=== PATIENT | female | born 1965 | race Caucasian/White ===

== ENCOUNTER 2016-11-17 16:16 | Emergency (ER) | payer OTHER ==
--- NOTE | 2016-11-17 18:28 | Diag Imaging Result Document ---
PROCEDURE NAME: CHEST-2 VIEWS - 11/17/2016 CHEST, 2 VIEWS: FINDINGS: Compared with 1 view chest of 02/28/2014. Heart size is normal. There is elevation of the anterior right hemidiaphragm which appears to have increased mildly. The lungs appear clear. There is no pleural effusion or pneumothorax identified. IMPRESSION: 1. Elevation of anterior right hemidiaphragm which appears mildly increased compared to 02/28/2014. 2. No other evidence of acute disease.
--- NOTE | 2016-11-17 18:34 | PROVIDER DOCUMENTATION ---
HPI-EENT General - General Chief Complaint: Cold Symptoms Stated Complaint: WHEEZING,EAR PAIN Time Seen by Provider: 11/17/16 18:30 Source: patient Allergies/Adverse Reactions: Patient Allergies Allergy/AdvReac Type Severity Reaction Status Date / Time No Known Allergies Allergy Verified 11/17/16 16:44 Home Medications: Home Medication List Medication Instructions Recorded Confirmed Last Taken Type Hydrocodone/APAP 5 mg/325 mg 1 - 2 tab PO Q6H PRN PRN #18 tablet 02/28/14 Unknown Rx [Devon-5] Lisinopril 40 mg PO DAILY 02/28/14 11/17/16 Unknown History Amoxicillin/Pot Clavulanate 875 mg PO Q12HR #20 tablet 11/17/16 Unknown Rx [Augmentin] Fluoxetine HCl [Prozac] 40 mg PO DAILY 11/17/16 11/17/16 Unknown History Ketorolac [Toradol] 10 mg PO Q6H PRN PRN #6 tablet 11/17/16 Unknown Rx Levothyroxine [Synthroid] 25 mcg PO DAILY 11/17/16 11/17/16 Unknown History Methylprednisolone [Medrol Dosepak] 4 mg PO DIRECTED #1 package 11/17/16 Unknown Rx - History of Present Illness-EENT General Nature of Presenting Problem: Pt c/o left earache with drainage of green/yellow. Wheezing with inspiration. No cough. Denies any nasal drainage. symptoms been going on for 2 weeks. EENT Location: reports: ear (L). denies: eye (R), eye (L), ear (R), nose, mouth , throat, facial, dental, other Quality of Pain: reports: aching, throbbing. denies: none, burning, cramping, dull, fullness, indigestion, pressure, sharp, stabbing, tearing, tightness, other Severity: reports: moderate Onset/Duration: reports: other (2 weeks) Timing: reports: still present, getting worse Prearrival Treatment: Initiated no prearrival treatment, Not Used over the counter meds, Not Used prescription meds, Not Used squeezing nostrils, Not Used nasal packing, Not Used flushing eyes, Not Used other Associated Symptoms: reports: cough, fever, nasal congestion/drainage, sore throat. denies: denies symptoms, change in hearing, drooling, DZ, ear drainage , facial pain/swelling, SARGENT, malaise, MS, RN COMPLIANCE, poor fluid intake, poor solids intake, sinus infection, SW, tooth pain, voice change, other Other injuries?: denies: neck, head, back, other Locality of Occurance: Home Similar Symptoms Previously?: No Recently seen or treated by another doctor?: No - Eyes Eye Problem Symptoms: denies: eye pain, decrease vision, blurred vision, double vision, curtain, other, burning, itching, sensitivity to light, redness, matting , orbital swelling, eyelid swelling, foreign body sensation - Ears Ear Problem Symptoms: reports: earache, discharge. denies: none, hearing loss, ringing in ears, roaring in ears, other Ear Problem Context: reports: none. denies: barotrauma, foreign body, trauma to ear, other - Throat/Dental Throat/Dental Problem Symptoms: reports: none Review of Systems - Adult - REVIEW OF SYSTEMS - ADULT Constitutional: reports: see HPI. denies: no symptoms reported, chills, fever, fatique, night sweats, weight gain, weight loss, other Eyes: reports: no symptoms reported. denies: see HPI, discharge, dry eyes, decreased vision, blurred vision, double vision, eye pain, redness, other Ears, Nose, Mouth & Throat: reports: see HPI, ear discharge, ear pain, sinus problem, throat pain. denies: no symptoms reported, hearing loss, tinnitus, epistaxis, nose pain, loose teeth, mouth/dental pain, mouth swelling, hoarseness , throat swelling, other Cardiovascular: reports: no symptoms reported. denies: see HPI, chest pain, edema, heart murmur, irregular heart rate, orthopnea, palpitations, poor circulation, PND, syncope, other Respiratory: reports: see HPI, cough, wheezing. denies: no symptoms reported, chronic cough, dyspnea on exertion, excessive sputum production, hemoptysis, pleurisy, shortness of breath, other Gastrointestinal: reports: no symptoms reported. denies: see HPI, abdominal pain, hematemesis, constipation, diarrhea, difficulty swallowing, frequent heartburn, nausea, poor appetite, rectal bleeding, vomiting, other Genitourinary: reports: no symptoms reported. denies: see HPI, dysuria, discharge, frequency, flank pain, frequent UTI's, hematuria, hesitency, incontinence, urinary retention, urgency, other Musculoskeletal: reports: no symptoms reported. denies: see HPI, bone pain, back pain, frequent leg cramps, joint pain, joint swelling, muscle aches, muscle weakness, neck pain, other All Other Systems: Reviewed and Negative Past History - Adult - PAST MEDICAL HISTORY-ADULT Review of Records: reports: Old Records Reviewed, Nursing Assessment Review, Medications Reviewed, Social history reviewed & non-contributory. Major Childhood Illnesses: reports: history unknown Cardiovascular: reports: denies history Respiratory: reports: denies history Gastrointestinal: reports: denies history Obstetrical/Gynecological: reports: denies history Genitourinary: reports: denies history Musculoskeletal: reports: arthritis Neurological: reports: denies history Psychiatric: reports: anxiety Endocrine/Immune: reports: denies history Other Conditions: reports: denies history - PRIOR SURGERIES/PROCEDURES Surgical/Procedure History: reports: hysterectomy, other (tubal ligation) - PRIOR HOSPITALIZATIONS Prior Hospitalizations: reports: none - IMMUNIZATION STATUS Childhood Immunizations: See Nurse Assessment Flu Vaccine: See Nurse Assessment - FAMILY HISTORY Family History: reviewed, not pertinent Physical Exam- EENT - Physical Exam EENT Initial Vital Signs Reviewed: Yes General Appearance: appears well, alert, no apparent distress. negative: mild distress, moderate distress, severe distress, cachetic, obese, thin, anxious, lethargic, slow to respond, obtunded, combative, other Eye Exam: bilateral eye: normal inspection, PERRL, EOMI Ear Exam: right ear: auricle normal, canal normal, TM normal, left ear: erythema , tenderness, TM bulging Nasal Exam: normal inspection. negative: active bleeding, discharge, dried blood, foreign body, sinus tenderness, other Throat Exam: normal mouth inspection, pharynx normal. negative: dental tenderness, excessive drooling, foreign body, mandibular swelling, maxillary swelling, pharynx swelling, pharynx tenderness, tongue swollen, tonsillar exudate, tonsillar swelling, trismus, uvula swelling, voice changes, other Neck: non-tender, full range of motion, supple, normal inspection. negative: Brudzinski's sign, carotid bruit, C-spine tenderness, limited range of motion, lymphadenopathy, meningismus, trachial deviation, tender lateral, tender midline , thyromegaly, other Respiratory: chest non-tender, lungs clear, normal breath sounds, no pleuratic chest pain, no respiratory distress, no accessory muscle use. negative: respiratory distress, decreased breath sounds, accessory muscle use, crackles, rales, rhonchi, stridor, wheezing, dull on percussion, prolonged expiration, pain on inspiration, plerual rub, retractions, splinting, decreased rate, increased rate, crepitus, other Cardiovascular: normal peripheral pulses, regular rate, rhythm, no edema, no gallop, no JVD, no murmur. negative: JVD, bradycardia, tachycardia, diastolic murmur, systolic murmur, gallop/S3, gallop/S4, extra beats, friction rub, irregularly irregular, PMI displaced laterally, other Abdominal Exam: normal bowel sounds, non tender, soft, no organomegaly, no pulsatile mass. negative: abdominal bruit, abnormal bowel sounds, distended, guarding, rigid, rebound, tenderness, hernia, mass, hepatomegaly, spleenomegaly , McBurney's point tenderness, Branch's sign, obturator sign, prominent aortic pulsations, psoas, Rovsing's sign, other Lymphatic: no adenopathy. negative: axilla node tender, cervical node tenderness, inguinal node tender, enlargement, striations, streaking, other Back Exam: normal inspection, no CVA tenderness, no vertebral tenderness. negative: CVA tenderness, decreased range of motion, ecchymosis, kyphosis, lordosis, muscle spasm, scoliosis, swelling, vertebral tenderness, other Extremity: normal range of motion, non-tender, normal gait, normal inspection, no pedal edema, no calf tenderness, normal capillary refill. negative: pelvis stable, abnormal NV exam, calf tenderness, deformity, erythema, inflammation, joint effusion, pulse deficit, pedal edema, slow capillary refill, swelling, tenderness, other Integumentary: normal color, normal turgor, warm/dry. negative: abrasion(s), blanching, cyanosis, diaphoresis, decubitus, dependent lividity, ecchymosis, embolic lesions, erythema, signs of IVDA, jaundice, laceration(s), mottled, pallor, petechiae, purpura, rash, swelling, tenderness, warm, zoster-like rash, other Neurologic: grossly normal Psych/Mental Status: oriented x 3 Progress - PLAN OF CARE/RESULTS Progress/Plan/Lab Results: Orders Category Date Time Status CHEST-2 VIEWS [RAD] Stat Exams 11/17/16 16:19 Draft CefTRIAXONE [Rocephin] Med 11/17/16 18:37 Discontinued 1 gm IM NOW ONE Dexamethasone [Decadron] Med 11/17/16 18:38 Discontinued 4 mg IM NOW ONE Lidocaine 1% Pf [Xylocaine-Mpf 1%] Med 11/17/16 18:37 Discontinued 5 ml INJ NOW ONE Vital Signs Temp Pulse Resp BP Pulse Ox 11/17/16 19:35 98.4 F 82 20 124/82 97 11/17/16 17:49 98.5 F 79 18 116/79 97 11/17/16 16:42 97.3 F L 85 20 138/76 97 No Known Allergies Allergy (Verified 11/17/16 16:44) Hydrocodone/APAP 5 mg/325 mg [Devon-5] 1 - 2 tab PO Q6H PRN PRN #18 tablet 02/28 Lisinopril 40 mg PO DAILY 02/28/14 Amoxicillin/Pot Clavulanate [Augmentin] 875 mg PO Q12HR #20 tablet 11/17/16 Fluoxetine HCl [Prozac] 40 mg PO DAILY 11/17/16 Ketorolac [Toradol] 10 mg PO Q6H PRN PRN #6 tablet 11/17/16 Levothyroxine [Synthroid] 25 mcg PO DAILY 11/17/16 Methylprednisolone [Medrol Dosepak] 4 mg PO DIRECTED #1 package 11/17/16 - XRAY 1 XRAY Study: Chest Impression: Normal (Normal other than elevated hemidiaphragm per radiologist.) Departure - Departure Time of Disposition Order: 18:35 DIAGNOSIS: Otitis media Qualifiers: Laterality: left Chronicity: acute Recurrence: not specified as recurrent Spontaneous tympanic membrane rupture: without spontaneous rupture Upper respiratory infection Qualifiers: URI type: unspecified URI Qualified Code(s): J06.9 - Acute upper respiratory infection, unspecified Disposition: HOME 01 Certified Medical Emergency: Emergent Condition: Stable Additional Instructions: ED Follow Up Instructions: You have been treated by a care provider in the Emergency Department. These instructions are being provided to you so you can have an understanding of how to care for yourself upon discharge. Upon discharge from the Emergency Department, you are responsible for making arrangements for follow-up care by a physician of your choice. Take all prescribed medications as directed. Return to the Emergency Department immediately for any new or worsening symptoms. You may call the Physician Referral phone number at [phone] to obtain a list of Physicians who are taking new patients. Prescriptions: Amoxicillin/Pot Clavulanate [Augmentin] 875 mg PO Q12HR #20 tablet Methylprednisolone [Medrol Dosepak] 4 mg PO DIRECTED #1 package Ketorolac [Toradol] 10 mg PO Q6H PRN PRN #6 tablet PRN Reason: Pain Referrals: Jennifer Smith MD [STAFF PHYSICIAN] - None,PCP [Primary Care Provider] - Forms: Return to School/Parent Work Instructions: Amoxicillin capsules or tablets, Otitis Media, Adult, Easy-to- Read, Upper Respiratory Infection, Adult, [id number], Methylprednisolone tablets, Ketorolac tablets Attestation - Physician/ FROYLAN Attestation Patient care was provided by Advanced Practice Provider:: Yes Advanced Practice Provider:: Jay Jay Stewart Advanced Practice Provider documentation review:: The Mid-level provider documentation, treatment plan and medical decision making was reviewed by the physician who agrees with all treatment and medical decision making by the [facility]. Physician Attestation - Physician Attestation I, the provider, attest to the following statement:: Jay Jay Stewart Physician documentation Attestation:: This documentation recorded by the scribe accurately reflects the service I personally performed and the decisions made by me.
[2016-11-17] MEDS ORDERED: ROCEPHIN IM ONE (18:37)
[2016-11-17] MEDS ORDERED: XYLOCAINE-MPF 1% INJ ONE (18:37)
[2016-11-17] MEDS ORDERED: DECADRON IM ONE (18:38)
[2016-11-17 19:36] VITALS: BP 124/82
== END 2016-11-17 19:36 | disposition home or self-care (01) ==
LOC: P.ED 16:16
DX: H66.92 Otitis media, unspecified, left ear (principal); J06.9 Acute upper respiratory infection, unspecified; R06.2 Wheezing; H92.02 Otalgia, left ear; H92.12 Otorrhea, left ear; R50.9 Fever, unspecified; R05 Cough; R09.81 Nasal congestion; Z79.899 Other long term (current) drug therapy; J02.9 Acute pharyngitis, unspecified; M19.90 Unspecified osteoarthritis, unspecified site; F41.9 Anxiety disorder, unspecified
CPT/HCPCS: 71020; 96372; J0696; J1100